=== PATIENT | male | born 1950 | race Caucasian/White ===

== ENCOUNTER 2016-08-04 08:34 | Emergency (ER) | payer OTHER ==
[2016-08-04 10:14] LABS: HEMOGLOBIN 17.3 gm/dl (14.0-17.5); RED BLOOD COUNT 5.47 M/UL (4.20-5.50); WHITE BLOOD COUNT 6.1 K/UL (4.5-11.0)
[2016-08-04 10:40] LABS: BUN/CREATININE RATIO 24 (0-10)
== END 2016-08-04 18:09 | disposition home or self-care (01) ==
LOC: ER1 08:34
PROVIDERS: Physician Assistant
DX: R42 Dizziness and giddiness (principal); I10 Essential (primary) hypertension
CPT/HCPCS: 36415; 70450; 71010; 80053; 81001; 82550; 82553; 83690; 83874; 84484; 85025; 93005; 96361; 96374; 99284; J2405; J7050; Q9962